=== PATIENT | female | born 1950 | race African-American/Black ===

== ENCOUNTER 2022-05-14 15:40 | Emergency (ER) | payer MEDICARE, MEDICAID ==
[~2022-05-14] VITALS: Ht 177.8 cm; Wt 68.0 kg
[2022-05-14 15:56] VITALS: BP 120/75
--- NOTE | 2022-05-14 15:58 | NUR ---
PT TAKEN TO BED 5 VIA TYLER
--- NOTE | 2022-05-14 16:30 | NUR ---
71YO FEMALE PT ALLA FROM [facility]UNITY EXTENDED DUE TO FALL. PER [facility], FACILITY STATES PT HAD UNWITNESSED FALL FROM BED AND FOUND ON FLOOR. UPON ARRIVAL PT AWAKE , NON VERBAL, NO VISIBLE INJURY NOTED. PT BED BOUND AND AAOX1 TO NAME. DENIES PAIN AT THIS TIME. DENIES CHEST PAIN OR SOB. PT PRESENTS WITH GTUBE AND GUTIERREZ IN PLACE ALONG W/ STAGE 3 SACRAL ULCER. LEFT HAND CONTRACTED AND WITH MILD SWELLING IN L HAND, PER FACILITY SWELLING IS CHRONIC. PT ON MONITOR, NO VISIBLE DISTRESS, RESPIRATIONS EVEN AND UNLABORED. BED AT LOWEST POSITION, BED RAILS UP X2. HX: STROKE, DIMENTIA ALLERGIES: CODEINE, PENICILLIN Addendum: 05/14/22 at 1851 by PHSEP UPON ARRIVAL , PT ON 2L VIA NC DUE TO 02 AT 78% .
--- NOTE | 2022-05-14 16:39 | NUR ---
PT DAUGHTER IN LOBBY AND REQUESTED UPDATES: KENNEDY ARREAGA [phone]
--- NOTE | 2022-05-14 17:06 | NUR ---
PT TAKEN TO CT VIA TYLER
--- NOTE | 2022-05-14 17:23 | NUR ---
PT BROUGHT BACK FROM CT VIA [facility]YL[facility]
[2022-05-14 17:47] LABS: BASOPHILS % (AUTO) 0.5 % (0.0-2.0); EOSINOPHILS # (AUTO) 0.1 K/uL (0-0.4); EOSINOPHILS % (AUTO) 1.3 % (0.0-4.0); HEMATOCRIT 38.4 % (36-48); HEMOGLOBIN 12.3 g/dL (12.0-16.0); LYMPHOCYTES # (AUTO) 0.8 K/uL (2.5-16.5); LYMPHOCYTES % (AUTO) 16.1 % (20.5-51.1); MEAN CORPUSCULAR HEMOGLOBIN 23 pg (27-31); MEAN CORPUSCULAR HGB CONC 32 g/dL (33-37); MEAN CORPUSCULAR VOLUME 72.7 fL (80-94); MONOCYTES # (AUTO) 0.4 K/uL (0.8-1.0); MONOCYTES % (AUTO) 8.2 % (1.7-9.3); NEUTROPHILS # (AUTO) 3.8 K/uL (1.8-7.7); NEUTROPHILS % (AUTO) 73.9 % (42.2-75.2); PLATELET COUNT (AUTO) 294 K/uL (140-450); RED BLOOD CELL COUNT(AUTO) 5.28 MIL/uL (4.20-5.40); RED CELL DISTRIBUTION WIDTH 17.1 % (11.6-13.7); WHITE BLOOD COUNT (AUTO) 5.2 K/uL (4.8-10.8)
[2022-05-14 17:54] LABS: APPEARANCE,URINE CLEAR (CLEAR); BILIRUBIN,URINE NEGATIVE (NEGATIVE); BLOOD, URINE TRACE-I (NEGATIVE); COLOR,URINE YELLOW (YELLOW); LEUKOCYTE ESTERASE ,URINE 1+ (NEGATIVE); NITRITE, URINE NEGATIVE (NEGATIVE); UGLUCOSE NEGATIVE (NEGATIVE)
[2022-05-14 18:20] LABS: WBC,URINE 0-5 /HPF (0-5)
--- NOTE | 2022-05-14 18:22 | NUR ---
PT DAUGHTER UPDATED ON PT STATUS
--- NOTE | 2022-05-14 19:30 | NUR ---
REPORT GIVEN TO JOYCELYN MONSALVE. ALL QUESTIONS ANSWERED. TRANSFER OF CARE AT THIS TIME
--- NOTE | 2022-05-14 20:30 | NUR ---
PATIETN SITTING RESTING IN BED WITH EYES CLOSED. RR APPEAR TO BE EVEN AND UNLABORED. DOESNT APPEAR TO BE IN DISTRESS. BED LOW AND LOCKED. SIDE RAILS UP FLORI FOR SAFETY. ALL NEEDS MET.
--- NOTE | 2022-05-14 22:07 | NUR ---
SPOKE TO BELLO CABRERA AT [facility] AND GAVE AN UPDATE ON PATIENTS STATUS.
[2022-05-14 22:41] LABS: ANION GAP 13.7 (8-16); CARBON DIOXIDE 25.2 mmol/L (21-32); CHLORIDE 98 mmol/L (98-107); CREATININE 0.5 mg/dL (0.6-1.3); GLUCOSE 96 mg/dL (74-106); POTASSIUM 3.9 mmol/L (3.5-5.1); TOTAL BILIRUBIN 0.2 mg/dL (0.0-1.0); UREA NITROGEN, BLOOD 17 mg/dL (7-18)
[2022-05-14 22:42] LABS: ALBUMIN 2.7 g/dL (3.4-5.0); ASPARTATE AMINOTRANSFERASE 24 U/L (15-37); SODIUM SERUM 133 mmol/L (136-145)
[2022-05-15] MEDS ORDERED: CEPH-588 PO (00:31)
[2022-05-15] MEDS ORDERED: cephALEXin 500 MG CAP PO ONE (00:35)
[2022-05-15] MEDS ORDERED: cephALEXin 500 MG CAP GT ONE (00:50)
--- NOTE | 2022-05-15 00:51 | NUR ---
CHANGE OF ROUTE FOR MEDICATION TO GT. RETURNED KEFLEX PO
--- NOTE | 2022-05-15 00:59 | NUR ---
DR BEST FROM [facility] GAVE AUTH # [id number] FOR TRANSPORT BACK TO [facility] TO [facility]
--- NOTE | 2022-05-15 01:08 | NUR ---
PATIENT MEDICATED PER ORDERS. GT FLUSHED AFTER. GT PATENT AND INTACT. PATIENT REPOSITIONED IN BED. BED LOW AND LOCKED. FLORI SIDE RAILS FOR SAFETY. ALL NEEDS MET.
--- NOTE | 2022-05-15 01:45 | NUR ---
VADIM FROM [facility] CALLED BACK WITH ETA OF [phone] FOR TRANSPORT BACK TO [facility].
--- NOTE | 2022-05-15 02:07 | NUR ---
SPOKE TO DWIGHT, CHARGE NURSE AT [facility]. UPDATED ON PATIENTS STATUS AND DISCHARGE DOCUMENTATION AND THAT PATIENT WILL BE PICKED UP WITH ETA [id number].
--- NOTE | 2022-05-15 02:51 | NUR ---
[facility] CALL[facility] WITH UPDATED ETA OF [phone]
--- NOTE | 2022-05-15 03:21 | NUR ---
PATIENT RESTING IN BED WITH EYES CLOSED. HOB ELEVATED. BED LOW AND LOCKED. SIDE RAILS UP X2.
--- NOTE | 2022-05-15 04:54 | NUR ---
Note nahumone in EDM - 05/15/22 at 0726 by LUNA Patient discharged with v/s stable. Written and verbal after care instructions given and explained. Patient alert, oriented and verbalized understanding of instructions. Ambulance Transport with to longterm. All questions addressed prior to discharge. ID band removed. Patient advised to follow up with PMD. Rx of KEFLEX given.
--- NOTE | 2022-05-15 05:20 | NUR ---
[facility] AT BEDSIDE FOR TRANSPORT BACK TO [facility]
[2022-05-15 05:37] VITALS: BP 135/67
--- NOTE | 2022-05-15 05:54 | NUR ---
Patient discharged with v/s stable. Written and verbal after care instructions given and explained. Patient alert, oriented and verbalized understanding of instructions. Ambulance Transport with to alf. All questions addressed prior to discharge. ID band removed. Patient advised to follow up with PMD. Rx of KEFLEX given.
== END 2022-05-15 05:37 ==
LOC: MED 15:40
DX: R41.82 Altered mental status, unspecified (principal); Z91.81 History of falling
CPT/HCPCS: 36415; 70450; 71045; 72125; 80053; 81001; 84484; 85025; 87086; 93005; 99285; Q0092